=== PATIENT | female | born 1950 | race Caucasian/White ===

== ENCOUNTER 2016-10-22 17:42 | Emergency (ER) | payer OTHER ==
--- NOTE | 2016-10-22 19:45 | ED CLINICAL REPORT ---
Clinical Report - Physicians/Mid Levels [facility] [address] [place] [address] 10/22/2016 17:44 Patient: JORGE LUIS JENSEN Time Seen: 18:17; initial patient contact, initial documentation, patient care assumed. Arrived- By private vehicle. Historian- patient. HISTORY OF PRESENT ILLNESS Chief Complaint: BLOOD PRESSURE ELEVATED. At its maximum, severity described as severe. When seen in the E.D., severity described as moderate. Modifying factors. Not worsened by anything. Not relieved by anything. This started today and is still present. No current or associated symptoms. (took an extra lisinopril around 1400 after she left drs office). Similar symptoms previously: Chronically, milder. ( states her bp has been under control for last 3 years or more). Recent medical care: The patient was seen recently in the office. ( was at dr office today and her bp was elevated, went to store after, checked it, still elevated, so came here). REVIEW OF SYSTEMS No fever, sore throat, sinus drainage, nasal congestion or cough. No difficulty breathing or chest pain. She has had a headache. All systems otherwise negative, except as recorded above. PAST HISTORY See nurses notes. Hypertension. SOCIAL HISTORY Never smoker. No alcohol use or drug use. No recent travel. Is a local resident. FAMILY HISTORY Negative. ADDITIONAL NOTES The nursing notes have been reviewed with agreement regarding the chief complaint, HPI, ROS, PMH and patient medications and allergies. PHYSICAL EXAM Vital Signs: 10/22/2016 17:48 BP: 206/117. HR: 78. RR: 18. O2 saturation: 97%. Temp: 98 F. Pain level now: 7/10. Have been reviewed as abnormal and appear to be correct. Hypertensive. Heart rate normal. Respiratory rate normal. Temperature normal. Oxygen saturation normal. Appearance: Alert. No acute distress. Eyes: Pupils equal, round and reactive to light. Eyes normal inspection. Neck: Normal inspection. Neck supple. CVS: Normal heart rate and rhythm. Heart sounds normal. Pulses normal. Respiratory: No respiratory distress. Breath sounds normal. Chest nontender. Back: Normal inspection. Skin: Skin warm and dry. Normal skin color. No rash. Normal skin turgor. Extremities: Extremities exhibit normal ROM. No lower extremity edema. Neuro: Oriented X 3. No motor deficit. No sensory deficit. PROGRESS AND PROCEDURES Course of Care: tx options discussed with pt, pt demanding and telling me what she will agree to and not agree to do, and how she thinks her care should be managed, pt asked first if I was going to give her nifedipine, telling me won't take atenolol oral because she knows her body and she knows it won't work, pt at first refusing any beta braulio until our discussion continued nurse reporting now pt wants to hold off on iv for 15 min to see what pressure does circus hand rn now reporting pt refusing iv and iv meds and wants oral. 10/22/2016 19:19 BP: 182/90. HR: 88. RR: 19. Vital Signs: have been reviewed as abnormal and appear to be correct. Hypertensive. Heart rate normal. Respiratory rate normal. Patient counseled in person regarding the patient's stable condition and diagnosis. 19:45. Differential Diagnosis: Other possible considerations: uncontrolled htn, tia, cva, brain anuerysm. Above considerations are based on history, physical exam and laboratory data. Differential diagnosis was discussed with patient. Disposition: Discharged home in good and improved condition (19:45). Condition: good and stable. CLINICAL IMPRESSION Uncontrolled essential hypertension. INSTRUCTIONS Warnings: GENERAL WARNINGS: Return or contact your physician immediately if your condition worsens or changes unexpectedly, if not improving as expected, or if other problems arise. Specifically return if problem worsens. Follow-up: Follow up with your doctor in about three days even if well. Call for an appointment. Summary of care provided to patient. Screening today revealed the patient's blood pressure to be in the hypertensive range. The patient should follow up with a primary care provider for blood pressure management. Understanding of the discharge instructions verbalized by patient. (Electronically signed by Juanita Hannah A.R.N.P. 10/22/2016 22:37)
--- NOTE | 2016-10-22 19:45 | ED CLINICAL REPORT ---
Clinical Report - Physicians/Mid Levels [facility] [address] [place] [address] 10/22/2016 17:44 Patient: JORGE LUIS JENSEN Time Seen: 18:17; initial patient contact, initial documentation, patient care assumed. Arrived- By private vehicle. Historian- patient. HISTORY OF PRESENT ILLNESS Chief Complaint: BLOOD PRESSURE ELEVATED. At its maximum, severity described as severe. When seen in the E.D., severity described as moderate. Modifying factors. Not worsened by anything. Not relieved by anything. This started today and is still present. No current or associated symptoms. (took an extra lisinopril around 1400 after she left drs office). Similar symptoms previously: Chronically, milder. ( states her bp has been under control for last 3 years or more). Recent medical care: The patient was seen recently in the office. ( was at dr office today and her bp was elevated, went to store after, checked it, still elevated, so came here). REVIEW OF SYSTEMS No fever, sore throat, sinus drainage, nasal congestion or cough. No difficulty breathing or chest pain. She has had a headache. All systems otherwise negative, except as recorded above. PAST HISTORY See nurses notes. Hypertension. SOCIAL HISTORY Never smoker. No alcohol use or drug use. No recent travel. Is a local resident. FAMILY HISTORY Negative. ADDITIONAL NOTES The nursing notes have been reviewed with agreement regarding the chief complaint, HPI, ROS, PMH and patient medications and allergies. PHYSICAL EXAM Vital Signs: 10/22/2016 17:48 BP: 206/117. HR: 78. RR: 18. O2 saturation: 97%. Temp: 98 F. Pain level now: 7/10. Have been reviewed as abnormal and appear to be correct. Hypertensive. Heart rate normal. Respiratory rate normal. Temperature normal. Oxygen saturation normal. Appearance: Alert. No acute distress. Eyes: Pupils equal, round and reactive to light. Eyes normal inspection. Neck: Normal inspection. Neck supple. CVS: Normal heart rate and rhythm. Heart sounds normal. Pulses normal. Respiratory: No respiratory distress. Breath sounds normal. Chest nontender. Back: Normal inspection. Skin: Skin warm and dry. Normal skin color. No rash. Normal skin turgor. Extremities: Extremities exhibit normal ROM. No lower extremity edema. Neuro: Oriented X 3. No motor deficit. No sensory deficit. PROGRESS AND PROCEDURES Course of Care: tx options discussed with pt, pt demanding and telling me what she will agree to and not agree to do, and how she thinks her care should be managed, pt asked first if I was going to give her nifedipine, telling me won't take atenolol oral because she knows her body and she knows it won't work, pt at first refusing any beta braulio until our discussion continued nurse reporting now pt wants to hold off on iv for 15 min to see what pressure does heating and refrigeration inspector rn now reporting pt refusing iv and iv meds and wants oral. 10/22/2016 19:19 BP: 182/90. HR: 88. RR: 19. Vital Signs: have been reviewed as abnormal and appear to be correct. Hypertensive. Heart rate normal. Respiratory rate normal. Patient counseled in person regarding the patient's stable condition and diagnosis. 19:45. Differential Diagnosis: Other possible considerations: uncontrolled htn, tia, cva, brain anuerysm. Above considerations are based on history, physical exam and laboratory data. Differential diagnosis was discussed with patient. Disposition: Discharged home in good and improved condition (19:45). Condition: good and stable. CLINICAL IMPRESSION Uncontrolled essential hypertension. INSTRUCTIONS Warnings: GENERAL WARNINGS: Return or contact your physician immediately if your condition worsens or changes unexpectedly, if not improving as expected, or if other problems arise. Specifically return if problem worsens. Follow-up: Follow up with your doctor in about three days even if well. Call for an appointment. Summary of care provided to patient. Screening today revealed the patient's blood pressure to be in the hypertensive range. The patient should follow up with a primary care provider for blood pressure management. Understanding of the discharge instructions verbalized by patient. (Electronically signed by Juanita Hannah A.R.N.P. 10/22/2016 22:37)
--- NOTE | 2016-10-22 19:45 | ED NURSING NOTES ---
Clinical Report - Nurses [place] [address] [place] [address] 10/22/2016 17:44 Patient: JORGE LUIS JENSEN TRIAGE Triage time 17:48. Acuity: LEVEL 3. Chief Complaint: BLOOD PRESSURE CHECK. Alert. No acute distress. EARL COMA SCORE: Earl Coma Scale: 15- eyes open spontaneously (4); best verbal response- oriented x 4 (5); best motor response- obeys commands (6). --17:57 Tanya Toscano R.N. 17:48 10/22/16. BP: 206/117 taken on the left arm. HR: 78. RR: 18. O2 saturation: 97%. Temp: 98 F. Pain level now: 03/22. --17:57 Tanya Toscano R.N. 17:57 10/22/16. BP: 204/112 taken on the right arm. --17:57 Tanya Toscnao R.N. Weight: 63.5 kg stated. Height/Length: 64 inches Per Patient. BMI: 24. --17:55 Tanya Toscano R.N. Medications Atenolol Oral 125 mg, daily. --17:54 Tanya Toscano R.N. Lisinopril Oral 20 mg, daily. --17:55 Tanya Toscano R.N. Hydrochlorothiazide Oral 12.5 mg, daily. --17:55 Tanya Toscano R.N. Lipitor Oral 20 mg, daily. --17:55 Tanya Toscano R.N. Epinephrine Injection. --17:55 Tanya Toscano R.N. Allergies Epinephrine. --17:56 Tanya Toscano R.N. History Arrived by private vehicle. Historian: patient. Accompanied by family. Primary physician (Shannon). This started today. PAST MEDICAL HX: The patient is post-menopausal. SOCIAL HX: Smoker- current status unknown (no). Occasional alcohol use. No drug use. FALL RISK ASSESSMENT: Fall risk assessment completed. No fall risk identified. FUNCTIONAL ASSESSMENT: Functional assessment: no impairments noted. LEARNING NEEDS ASSESSMENT: The learning needs assessment revealed no barriers. --17:57 Tanya Toscano R.N. Assessment GENERAL / NEURO / PSYCH: Alert. Oriented X 4. Appears in no acute distress. Patient appears calm and cooperative. RESPIRATORY: Respirations not labored. SKIN: Skin is warm and dry. --17:57 Tanya Toscano R.N. Interventions ID band on patient. To waiting room. --17:57 Tanya Toscano R.N. NURSING PROGRESS NOTES 18:28 10/22/16. BP: 191/104. --18:28 Maribel Shore R.N. Patient ready for evaluation. --18:28 Maribel Shore R.N. 18:59 10/22/16. ( Pt refused to have IV started and medication given "for 15 minutes".). --18:59 Maribel Shore R.N. 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 --19:13 Maribel Shore R.N. 19:19 10/22/16. BP: 182/90. HR: 88. RR: 19. --19:24 Niesha Arguello R.N. 19:19 10/22/16. ( PATIENTS NOW STATES SHE WOULD LIKE A BLOOD PRESSURE PILL AND TO BE DISCHARGED. PROVIDER INFORMED.). --19:24 Niesha Arguello R.N. 19:19 10/22/16. Care transferred and report given (to RAY Puckett). --19:19 Mraibel Shore R.N. 19:50 10/22/2016 Metoprolol PO Tablets 50 mg given. Allergies verified and confirmed 5 rights. --19:52 Niesha Arguello R.N. DISPOSITION / DISCHARGE 19:53 10/22/16. Departure time: 19:53 Oct 22 2016. Condition at departure: improved and stable. The goals identified in the patient's plan of care were met. No learning barriers present. Reviewed referral to a primary care physician for followup. Summary of care provided to patient via paper. Patient verbalized understanding. Written instructions provided in [place]ese. The patient was discharged home and accompanied by commodities manager. She left the Emergency Department ambulatory and via private vehicle. Patient driving. FALL RISK ASSESSMENT: Fall risk assessment completed. No fall risk identified. --19:53 Niesha Arguello R.N. 19:50 10/22/16. BP: 173/92. 19:23 10/22/16. BP: 182/90. HR: 88. RR: 19. 18:28 10/22/16. BP: 191/104. 17:57 10/22/16. BP: 204/112 taken on the right arm. 17:48 10/22/16. BP: 206/117 taken on the left arm. HR: 78. RR: 18. O2 saturation: 97%. Temp: 98 F. Pain level now: 10. --19:53 Niesha Arguello R.N. Locked/Released at 10/22/2016 19:53 by Niesha Arguello R.N.
--- NOTE | 2016-10-22 19:45 | ED ORDER SUMMARY ---
..... Patient: JORGE LUIS JENSEN OrderSheet [facility] VisitID: [id number] [place] [address] 66y, F Registration Date/Time: 10/22/2016 ORDER SHEET Weight: 63.5 kg (stated) Allergies: Epinephrine GENERAL ORDERS: Tomato Paste Maker (Continuous) (18:44 10/22/2016 HBivens A.R.N.P.) (Ack 18:47 TBergley) (19:27 EInderbitzen R.N.) CBC w Diff Urgent (18:44 10/22/2016 HBivens A.R.N.P.) (Ack 18:47 TBergley) (19:27 EInderbitzen R.N.) CMP Urgent (18:44 10/22/2016 HBivens A.R.N.P.) (Ack 18:47 TBergley) (19:28 EInderbitzen R.N.) MEDICATION ORDERS: Metoprolol PO 50 mg (HIGH ALERT MEDICATION, NOW) (19:43 10/22/2016 HBivens A.R.N.P.) (19:52 EInderbitzen R.N.) IV FLUIDS: Lopressor IV 5 mg (HIGH ALERT MEDICATION, NOW) (18:44 10/22/2016 HBivens A.R.N.P.) (Cancelled: Patient Wsciqts05:27 EInderbitzen R.N.) IV Saline Lock (18:44 10/22/2016 HBivens A.R.N.P.) (Cancelled: Patient Osjpclp29:27 EInderbitzen R.N.) ORDER SHEET NOTES: [Electronically signed by Niesha Arguello R.N. (19:53 10/22/2016)] [Electronically signed by Juanita Hannah A.R.N.P. (22:37 10/22/2016)] [Electronically locked/signed by Niesha Arguello R.N. (19:53 10/22/2016)]
--- NOTE | 2016-10-22 19:45 | ED ORDER SUMMARY ---
..... Patient: JORGE LUIS JENSEN OrderSheet [facility] VisitID: [id number] [place] [address] 66y, F Registration Date/Time: 10/22/2016 ORDER SHEET Weight: 63.5 kg (stated) Allergies: Epinephrine GENERAL ORDERS: Diamond Die Polisher (Continuous) (18:44 10/22/2016 HBivens A.R.N.P.) (Ack 18:47 TBergley) (19:27 EInderbitzen R.N.) CBC w Diff Urgent (18:44 10/22/2016 HBivens A.R.N.P.) (Ack 18:47 TBergley) (19:27 EInderbitzen R.N.) CMP Urgent (18:44 10/22/2016 HBivens A.R.N.P.) (Ack 18:47 TBergley) (19:28 EInderbitzen R.N.) MEDICATION ORDERS: Metoprolol PO 50 mg (HIGH ALERT MEDICATION, NOW) (19:43 10/22/2016 HBivens A.R.N.P.) (19:52 EInderbitzen R.N.) IV FLUIDS: Lopressor IV 5 mg (HIGH ALERT MEDICATION, NOW) (18:44 10/22/2016 HBivens A.R.N.P.) (Cancelled: Patient Ajgngiz37:27 EInderbitzen R.N.) IV Saline Lock (18:44 10/22/2016 HBivens A.R.N.P.) (Cancelled: Patient Wgvkvrv58:27 EInderbitzen R.N.) ORDER SHEET NOTES: [Electronically signed by Niesha Arguello R.N. (19:53 10/22/2016)] [Electronically signed by Juanita Hannah A.R.N.P. (22:37 10/22/2016)] [Electronically locked/signed by Niesha Arguello R.N. (19:53 10/22/2016)]
--- NOTE | 2016-10-22 19:45 | ED NURSING NOTES ---
Clinical Report - Nurses [place] [address] [place] [address] 10/22/2016 17:44 Patient: JORGE LUIS JENSEN TRIAGE Triage time 17:48. Acuity: LEVEL 3. Chief Complaint: BLOOD PRESSURE CHECK. Alert. No acute distress. EARL COMA SCORE: Earl Coma Scale: 15- eyes open spontaneously (4); best verbal response- oriented x 4 (5); best motor response- obeys commands (6). --17:57 Tanya Toscano R.N. 17:48 10/22/16. BP: 206/117 taken on the left arm. HR: 78. RR: 18. O2 saturation: 97%. Temp: 98 F. Pain level now: 03/22. --17:57 Tanya Toscano R.N. 17:57 10/22/16. BP: 204/112 taken on the right arm. --17:57 Tanya Toscano R.N. Weight: 63.5 kg stated. Height/Length: 64 inches Per Patient. BMI: 24. --17:55 Tanya Toscano R.N. Medications Atenolol Oral 125 mg, daily. --17:54 Tanya Toscano R.N. Lisinopril Oral 20 mg, daily. --17:55 Tanya Toscano R.N. Hydrochlorothiazide Oral 12.5 mg, daily. --17:55 Tanya Toscano R.N. Lipitor Oral 20 mg, daily. --17:55 Tanya Toscano R.N. Epinephrine Injection. --17:55 Tanya Toscano R.N. Allergies Epinephrine. --17:56 Tanya Toscano R.N. History Arrived by private vehicle. Historian: patient. Accompanied by family. Primary physician (Shannon). This started today. PAST MEDICAL HX: The patient is post-menopausal. SOCIAL HX: Smoker- current status unknown (no). Occasional alcohol use. No drug use. FALL RISK ASSESSMENT: Fall risk assessment completed. No fall risk identified. FUNCTIONAL ASSESSMENT: Functional assessment: no impairments noted. LEARNING NEEDS ASSESSMENT: The learning needs assessment revealed no barriers. --17:57 Tanya Toscano R.N. Assessment GENERAL / NEURO / PSYCH: Alert. Oriented X 4. Appears in no acute distress. Patient appears calm and cooperative. RESPIRATORY: Respirations not labored. SKIN: Skin is warm and dry. --17:57 Tanya Toscano R.N. Interventions ID band on patient. To waiting room. --17:57 Tanya Toscano R.N. NURSING PROGRESS NOTES 18:28 10/22/16. BP: 191/104. --18:28 Maribel Shore R.N. Patient ready for evaluation. --18:28 Maribel Shore R.N. 18:59 10/22/16. ( Pt refused to have IV started and medication given "for 15 minutes".). --18:59 Maribel Shore R.N. 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 --19:13 Maribel Shore R.N. 19:19 10/22/16. BP: 182/90. HR: 88. RR: 19. --19:24 Niesha Arguello R.N. 19:19 10/22/16. ( PATIENTS NOW STATES SHE WOULD LIKE A BLOOD PRESSURE PILL AND TO BE DISCHARGED. PROVIDER INFORMED.). --19:24 Niesha Arguello R.N. 19:19 10/22/16. Care transferred and report given (to RAY Puckett). --19:19 Maribel Shore R.N. 19:50 10/22/2016 Metoprolol PO Tablets 50 mg given. Allergies verified and confirmed 5 rights. --19:52 Niesha Arguello R.N. DISPOSITION / DISCHARGE 19:53 10/22/16. Departure time: 19:53 Oct 22 2016. Condition at departure: improved and stable. The goals identified in the patient's plan of care were met. No learning barriers present. Reviewed referral to a primary care physician for followup. Summary of care provided to patient via paper. Patient verbalized understanding. Written instructions provided in [place] Islander. The patient was discharged home and accompanied by deputy sheriff. She left the Emergency Department ambulatory and via private vehicle. Patient driving. FALL RISK ASSESSMENT: Fall risk assessment completed. No fall risk identified. --19:53 Niesha Arguello R.N. 19:50 10/22/16. BP: 173/92. 19:23 10/22/16. BP: 182/90. HR: 88. RR: 19. 18:28 10/22/16. BP: 191/104. 17:57 10/22/16. BP: 204/112 taken on the right arm. 17:48 10/22/16. BP: 206/117 taken on the left arm. HR: 78. RR: 18. O2 saturation: 97%. Temp: 98 F. Pain level now: 10. --19:53 Niesha Arguello R.N. Locked/Released at 10/22/2016 19:53 by Niesha Arguello R.N.
--- NOTE | 2016-10-22 22:38 | ED MED RECONCILIATION SUMMARY ---
Patient: JORGE LUIS JENSEN Medication Reconciliation Report Located Within [facility] VisitID: [id number] [address] [place] [address] 66y, F Registration Date/Time: 10/22/2016 Weight: 63.5 kg Height/Length: 64 in. BMI: 24.0 ALLERGIES: Epinephrine The patient's Home Medications are listed below: THE FOLLOWING MEDICATIONS NEED TO BE RECONCILED: Atenolol Oral 125 mg, daily Epinephrine Injection Hydrochlorothiazide Oral 12.5 mg, daily Lipitor Oral 20 mg, daily Lisinopril Oral 20 mg, daily The source(s) of the original Home Medication information: Not obtained. The following Medications were given to the patient in the Emergency Department: Metoprolol [PO] PO 50 mg, administered: 10/22/2016 7:50:00 PM The following Medications were prescribed to the patient: None.
--- NOTE | 2016-10-22 22:38 | ED DISCHARGE INSTRUCTIONS ---
Patient: JORGE LUIS JENSEN General Instructions [facility] VisitID: [id number] [place] [address] 66y, F Registration Date/Time: 10/22/2016 Uncontrolled essential hypertension. INSTRUCTIONS Warnings: GENERAL WARNINGS: Return or contact your physician immediately if your condition worsens or changes unexpectedly, if not improving as expected, or if other problems arise. Specifically return if problem worsens. Follow-up: Follow up with your doctor in about three days even if well. Call for an appointment. Summary of care provided to patient. Screening today revealed the patient's blood pressure to be in the hypertensive range. The patient should follow up with a primary care provider for blood pressure management. Understanding of the discharge instructions verbalized by patient. ADDITIONAL INFORMATION Hypertension, Out Of Control (Established) Your blood pressure was unusually high today. This can occur as a result of missing doses of your blood pressure medicine. Some asthma inhalers, decongestants, diet pills, and street drugs such as cocaine and amphetamine can worsen hypertension. An increase in body weight, increase in salt intake, smoking, and caffeine are other causes. Emotional upset or acute pain can cause a sudden rapid rise in blood pressure which may return to normal after a period of rest. A normal blood pressure is less than 140/90. The first (top) number is the systolic pressure. The second (bottom) number is the diastolic pressure. Hypertension exists when either the top number is 140 or higher, OR the bottom number is 90 or higher on repeated measurements. Home Care: All patients with high blood pressure should do the following to lower their pressure. If you are on blood pressure medicines, then these methods may reduce or eliminate your need for medicines in the future. Begin a weight-loss program if you are overweight. Reduce your salt intake. Avoid high-salt foods (olives, pickles, smoked meats, salted potato chips, etc.). Do not add salt to your food at the table. Use only small amounts of salt when cooking. Begin an exercise program. Discuss with your doctor what type of exercise program would be best for you. It doesnt have to be difficult. Even brisk walking for 20 minutes3 times a week is a good form of exercise. Avoid medicines which contain heart stimulants. This includes many cold and sinus decongestant pills and sprays as well as diet pills. Check the warnings about hypertension on the label. Stimulants such as amphetamine or cocaine could be lethal for someone with hypertension. Never take these. Limit your caffeine intake or switch to decaf. Stop smoking. If you are a long-time smoker, this can be hard. Enroll in a stop-smoking program to improve your chance of success. Talk to your physician about ways to improve your chance of success. Learning how to handle stress better is an important part of any program to lower blood pressure. Learn about relaxation methods such as meditation, yoga, or biofeedback. If medicines were prescribed, take them exactly as directed. Missing doses may cause your blood pressure to get out of control. Consider buying an automatic blood pressure machine (available at many pharmacies). Use this to monitor your blood pressure and report to your doctor. Follow Up: Regular visits to your own doctor for blood pressure checks and medicine adjustment is an important part of your care. Make a follow-up appointment as directed by our staff. Get Prompt Medical Attention if any of the following occur: Chest, arm, shoulder, neck, or upper back pain Shortness of breath Severe headache Throbbing or rushing sound in the ears Nosebleed Extreme drowsiness, confusion, or fainting Dizziness or vertigo (dizziness with spinning sensation) Weakness of an arm or leg or one side of the face Difficulty with speech or vision You have been given the following additional information: Hypertension, Established, Out Of Control (Electronically signed by Juanita Hannah A.R.N.P. 10/22/2016 22:37)
--- NOTE | 2016-10-22 22:38 | ED MAR SUMMARY ---
..... Medication Administration Record [facility] [address] [place] [address] Patient: JORGE LUIS JENSEN Visit ID: [id number] 66y, F Weight: 63.5 kg Height/Length: 64 in BMI: 24 ALLERGIES: Epinephrine Given 19:50 10/22/2016 Niesha Arguello R.N. Medication Administered: METOPROLOL [PO], Dose: 50 mg Tablets PO. Medication Ordered: Metoprolol PO 50 mg (HIGH ALERT MEDICATION, NOW).
--- NOTE | 2016-10-22 22:38 | ED MED RECONCILIATION SUMMARY ---
Patient: JORGE LUIS JENSEN Medication Reconciliation Report [facility] VisitID: [id number] [address] [place] [address] 66y, F Registration Date/Time: 10/22/2016 Weight: 63.5 kg Height/Length: 64 in. BMI: 24.0 ALLERGIES: Epinephrine The patient's Home Medications are listed below: THE FOLLOWING MEDICATIONS NEED TO BE RECONCILED: Atenolol Oral 125 mg, daily Epinephrine Injection Hydrochlorothiazide Oral 12.5 mg, daily Lipitor Oral 20 mg, daily Lisinopril Oral 20 mg, daily The source(s) of the original Home Medication information: Not obtained. The following Medications were given to the patient in the Emergency Department: Metoprolol [PO] PO 50 mg, administered: 10/22/2016 7:50:00 PM The following Medications were prescribed to the patient: None.
--- NOTE | 2016-10-22 22:38 | ED MAR SUMMARY ---
..... Medication Administration Record [facility] [address] [place] [address] Patient: JORGE LUIS JENSEN Visit ID: [id number] 66y, F Weight: 63.5 kg Height/Length: 64 in BMI: 24 ALLERGIES: Epinephrine Given 19:50 10/22/2016 Niesha Arguello R.N. Medication Administered: METOPROLOL [PO], Dose: 50 mg Tablets PO. Medication Ordered: Metoprolol PO 50 mg (HIGH ALERT MEDICATION, NOW).
== END 2016-10-22 19:52 | disposition home or self-care (01) ==
LOC: ED SRH 17:42
DX: I10 Essential (primary) hypertension (principal)